=== PATIENT | male | born 1960 | race Caucasian/White ===

== ENCOUNTER 2019-04-14 22:35 | Inpatient (IN) | payer MEDICARE ==
[~2019-04-14] VITALS: Ht 170.2 cm; Wt 117.0 kg
[2019-04-14] MEDS ORDERED: IV NORMAL SALINE 1,000ML 1,000 ML IV ONE (23:30)
--- NOTE | 2019-04-14 23:34 | PHYS DOC ---
Adult General Chief Complaint Chief Complaint: WEAKNESS/GENERALIZED HPI HPI 58-year-old male presents with weakness. The patient was just discharged from [facility] and sent home today. While at home, the patient became more weak and was unable to get himself up out of a chair. His family was able to come over and help him get out of his chair, but he was not very steady on his feet. There were concerned that the patient would fall if left alone at home. Patient has recently been treated for urinary tract infection. He has a Myers catheter for urinary retention. He denies fever or chills. The patient family also noticed a mass on the lateral left lower leg that is new the last 2 days. There has been no imaging or other workup of this mass. Patient has a history of CVA a couple months ago. He was recently in an acute rehabilitation facility for this. He was doing well at that time. Review of Systems Review of Systems Constitutional: Generalized weakness. Denies fever or chills [] Eyes: Denies change in visual acuity, redness, or eye pain [] HENT: Denies nasal congestion or sore throat [] Respiratory: Denies cough or shortness of breath [] Cardiovascular: No additional information not addressed in HPI [] GI: Denies abdominal pain, nausea, vomiting, bloody stools or diarrhea [] : Urinary retention, Myres catheter[] Musculoskeletal: Denies back pain or joint pain [] Integument: Denies rash or skin lesions [] Neurologic: Denies headache, focal weakness or sensory changes [] Endocrine: Denies polyuria or polydipsia [] All other systems were reviewed and found to be within normal limits, except as documented in this note. Current Medications Current Medications Current Medications Medications (Trade) Dose Ordered Sig/[facility] Start Time Stop Time Status Last Admin Dose Admin Sodium Chloride 1,000 ml @ 1,000 mls/hr 1X ONCE 04/14/19 23:30 04/15/19 00:29 Allergies Allergies Allergies Coded Allergies Type Severity Reaction Last Updated Verified diltiazem Adverse Reaction Intermediate dizziness 04/14/19 Yes Physical Exam Physical Exam Constitutional: Well developed, well nourished, no acute distress, non-toxic appearance. [] HENT: Normocephalic, atraumatic, bilateral external ears normal, oropharynx moist, no oral exudates, nose normal. [] Eyes: PERRLA, EOMI, conjunctiva normal, no discharge. [] Neck: Normal range of motion, no tenderness, supple, no stridor. [] Cardiovascular:Heart rate regular rhythm, no murmur [] Lungs & Thorax: Bilateral breath sounds clear to auscultation [] Abdomen: Bowel sounds normal, soft, no tenderness, no masses, no pulsatile masses. [] Skin: Warm, dry, no erythema, no rash. 3 cm x 3 cm mass in the left, lateral, lower leg. No overlying skin changes.[] Back: No tenderness, no CVA tenderness. [] Extremities: No tenderness, no cyanosis, no clubbing, ROM intact, 2+ pitting edema to the mid tibia bilaterally.[] Neurologic: Alert and oriented X 3, normal motor function, normal sensory funct ion, no focal deficits noted. [] Psychologic: Affect normal, judgement normal, mood normal. : Myers catheter in place[] EKG EKG Sinus tachycardia, rate 114, leftward axis, no ST elevations or depressions, possible Q waves in lead 3, V1 through V4.[] Radiology/Procedures Radiology/Procedures [] Impressions: Exam: Chest one view INDICATION: Weakness TECHNIQUE: Frontal view of the chest Comparisons: None FINDINGS: Heart is enlarged. Pulmonary vessels are within normal limits. The lung and pleural spaces are clear. IMPRESSION: Mild cardiomegaly without acute pulmonary process. Electronically signed by: Deena Ramos MD (04/14/2019 11:37 PM) [facility] DICTATED AND SIGNED BY: DEENA RAMOS MD DATE: 04/14/19 2332 CC: BRIDGET CHO DO; NON,STAFF ~ EXAM: Left lower extremity venous Doppler. HISTORY: Left lower extremity pain/swelling. COMPARISON: None. FINDINGS: Grayscale and Doppler analysis of the left lower extremity deep venous system was performed with graded compression and augmentation. The common femoral, greater saphenous, superficial femoral, popliteal and calf veins were assessed. There is no evidence of deep venous thrombosis. A complicated fluid collection along the proximal calf appears subcutaneous and measures 10.7 x 2.0 x 5.7 cm. IMPRESSION: 1. No evidence of deep venous thrombosis. 2. 10.7 x 5.7 cm, complicated fluid collection within the proximal calf suggesting a hematoma or a ruptured popliteal cyst. Electronically signed by: Fabricio Neil MD (04/15/2019 1:01 AM) [facility] DICTATED AND SIGNED BY: MILLI NEIL MD DATE: 04/15/19100 CC: BRIDGET CHO DO; ZEINAB SUMMERS MD ~ Course & Med Decision Making Course & Med Decision Making Pertinent Labs and Imaging studies reviewed. (See chart for details) The patient's labs are significant for an elevated anion gap, but her blood sugar less than 200. He also has mild anemia. His urinalysis continues to show leukocyte esterase, white blood cells, red blood cells, and moderate bacteria. I will cover him additional dose of 1 g of Rocephin IV. Ultrasound is pending. A mass on the patient's leg appears to be a ruptured cyst or a hematoma. Given the patient's weakness and inability to care for himself at home, I will admit him to the hospital. I discussed this with Dr. Valdes and he has accepted the patient for admission. [] Dragon Disclaimer Dragon Disclaimer This electronic medical record was generated, in whole or in part, using a voice recognition dictation system. Departure Departure: Impression: Primary Impression: Weakness Additional Impressions: UTI (urinary tract infection) Hematoma Disposition: ADMITTED INPATIENT Condition: STABLE Referrals: NON,STAFF (PCP) Problem Qualifiers Additional Impressions: UTI (urinary tract infection) Urinary tract infection type: catheter-associated UTI Indwelling urinary catheter type: indwelling urethral catheter Encounter type: initial en counter Qualified Codes: T83.511A - Infection and inflammatory reaction due to indwelling urethral catheter, initial encounter; N39.0 - Urinary tract infection, site not specified BRIDGET CHO DO Apr 14, 2019 23:34
--- NOTE | 2019-04-14 23:40 | RAD ---
Exam: Chest one view INDICATION: Weakness TECHNIQUE: Frontal view of the chest Comparisons: None FINDINGS: Heart is enlarged. Pulmonary vessels are within normal limits. The lung and pleural spaces are clear. IMPRESSION: Mild cardiomegaly without acute pulmonary process. Electronically signed by: Deena Uribe MD (04/14/2019 11:37 PM) [facility]
[2019-04-15 00:23] LABS: BASO # 0.1 x10^3/uL (0.0-0.2); BASO % 1 % (0-3); EOS # 0.1 x10^3/uL (0.0-0.7); EOS % 2 % (0-3); HEMATOCRIT 36.6 % (39.0-53.0); LYMPH # 1.5 x10^3/uL (1.0-4.8); LYMPH % 25 % (24-48); MEAN CORPUSCULAR HEMOGLOBIN 28 pg (25-35); MEAN CORPUSCULAR HGB CONC 33 g/dL (31-37); MEAN CORPUSCULAR VOLUME 84 fL (79-100); MONO # 0.5 x10^3/uL (0.0-1.1); MONO % 9 % (0-9); NEUT # 3.8 x10^3uL (1.8-7.7); NEUT % 63 % (31-73); PLATELET COUNT 437 x10^3/uL (140-400); RED BLOOD COUNT 4.35 x10^6/uL (4.30-5.70); RED CELL DISTRIBUTION WIDTH 14.7 % (11.5-14.5)
[2019-04-15 00:27] LABS: BILIRUBIN,URINE NEG (NEG); CLARITY,URINE HAZY; COLOR,URINE YELLOW; GLUCOSE,URINE NEG (NEG)
[2019-04-15 00:28] LABS: AMORPHOUS SEDIMENT,UR PRESENT /HPF; BACTERIA,URINE MOD /HPF (0-FEW); NITRITE,URINE NEG (NEG); RBC,URINE 20-40 /HPF (0-2); SQUAMOUS EPITHELIAL CELL,UR MOD /LPF; UROBILINOGEN,URINE 0.2 mg/dL (0.2 mg/dL)
[2019-04-15 00:30] LABS: ALBUMIN 3.4 g/dL (3.4-5.0); ALBUMIN/GLOBULIN RATIO 1.1 (1.0-1.7); CALCIUM 9.2 mg/dL (8.5-10.1); GFR 76.5; POTASSIUM 3.4 mmol/L (3.5-5.1); TOTAL BILIRUBIN 0.4 mg/dL (0.2-1.0); TOTAL PROTEIN 6.6 g/dL (6.4-8.2)
[2019-04-15] MEDS ORDERED: IV NORMAL SALINE 50ML 50 ML ONE (01:03)
[2019-04-15] MEDS ORDERED: cefTRIAXone SODIUM 1 GM VIAL ONE (01:03)
--- NOTE | 2019-04-15 01:04 | RAD ---
EXAM: Left lower extremity venous Doppler. HISTORY: Left lower extremity pain/swelling. COMPARISON: None. FINDINGS: Grayscale and Doppler analysis of the left lower extremity deep venous system was performed with graded compression and augmentation. The common femoral, greater saphenous, superficial femoral, popliteal and calf veins were assessed. There is no evidence of deep venous thrombosis. A complicated fluid collection along the proximal calf appears subcutaneous and measures 10.7 x 2.0 x 5.7 cm. IMPRESSION: 1. No evidence of deep venous thrombosis. 2. 10.7 x 5.7 cm, complicated fluid collection within the proximal calf suggesting a hematoma or a ruptured popliteal cyst. Electronically signed by: Fabricio Neil MD (04/15/2019 1:01 AM) [facility]
--- NOTE | 2019-04-15 01:52 | EKG ---
[address] [address] Test Date: 2019-04-14 Test Time: 23:33:58 Pat Name: TIMOTHY WATT Department: Room: Gender: M [employer]: : [id number] Requested By: BRIDGET CHO Order Number: [id number] Reading MD: Gus Tian MD Measurements Intervals [place] Rate: 114 P: 16 [place]: 182 QRS: -29 QRSD: 86 T: 24 QT: 302 QTc: 419 Interpretive Statements SINUS TACHYCARDIA CONSIDER PRIOR INFERIOR INFARCT Electronically Signed On 04-25-2019 9:44:09 CDT by Gus Tian MD
[2019-04-15] MEDS ORDERED: ONDANSETRON PF 4 MG/2 ML VIAL. IV PRN (02:00)
[2019-04-15] MEDS ORDERED: ACETAMINOPHEN 325 MG TABLET PO PRN (02:00)
[2019-04-15 04:00] VITALS: BP 170/110
[2019-04-15 06:51] VITALS: BP 182/102
[2019-04-15] MEDS ORDERED: AMIT25TA PO (07:07)
[2019-04-15] MEDS ORDERED: AMOX500C PO (07:09)
[2019-04-15] MEDS ORDERED: APIX5TAB3 PO (07:10)
[2019-04-15] MEDS ORDERED: CARV3.1230 PO (07:16)
[2019-04-15] MEDS ORDERED: ASPI81TA50 PO (07:16)
[2019-04-15] MEDS ORDERED: ARIP15TA36 PO (07:16)
[2019-04-15] MEDS ORDERED: CHLO100T6 PO (07:16)
[2019-04-15] MEDS ORDERED: DULO60CA6 PO (07:19)
[2019-04-15] MEDS ORDERED: FLUT50DI IH (07:19)
[2019-04-15] MEDS ORDERED: HYDR-2769 PO (07:24)
[2019-04-15] MEDS ORDERED: NPH,100V SQ (07:25)
[2019-04-15] MEDS ORDERED: INSU100V5 IJ (07:29)
[2019-04-15] MEDS ORDERED: OMEP40CA45 PO (07:29)
[2019-04-15] MEDS ORDERED: MONT10TA80 PO (07:29)
[2019-04-15] MEDS ORDERED: LISI40TA PO (07:29)
[2019-04-15] MEDS ORDERED: PREG300C PO (07:30)
[2019-04-15] MEDS ORDERED: SUMA100T3 PO (07:33)
[2019-04-15] MEDS ORDERED: CRESTOR20 MG PO (07:33)
[2019-04-15] MEDS ORDERED: ROPI4TAB10 PO (07:33)
[2019-04-15] MEDS ORDERED: TOPI200T25 PO (07:35)
[2019-04-15] MEDS ORDERED: NON FORMULARY ITEM (Fluticasone Propionate (Flovent 50MCG Diskus) 50 MCG) IH PRN (07:45)
[2019-04-15] MEDS ORDERED: POTASSIUM CHLORIDE 20 MEQ TABLET.ER. PO ONE (08:00)
[2019-04-15] MEDS ORDERED: SUMAtriptan SUCCINATE 50 MG TABLET PO PRN (08:30)
[2019-04-15] MEDS: CARVEDILOL 3.125 MG TABLET PO SCH ×2 (08:52→17:14)
[2019-04-15] MEDS: ASPIRIN ENTERIC COATED 81 MG TABLET.DR. PO SCH (08:53)
[2019-04-15] MEDS: AMITRIPTYLINE HCL 25 MG TABLET PO SCH ×2 (08:54→20:51)
[2019-04-15] MEDS: DULoxetine HCL 60 MG CAPSULE.DR PO SCH (08:54)
[2019-04-15] MEDS: APIXABAN 5 MG TABLET. PO SCH ×2 (08:55→20:53)
[2019-04-15] MEDS: PANTOPRAZOLE 40 MG TABLET. PO SCH (08:55)
[2019-04-15] MEDS: PREGABALIN 75 MG CAPSULE PO SCH ×2 (08:55→20:52)
[2019-04-15] MEDS: rOPINIRole 2 MG TABLET. PO SCH ×2 (08:56→20:51)
[2019-04-15] MEDS: MONTELUKAST 10 MG TABLET. PO SCH (08:56)
[2019-04-15] MEDS: LISINOPRIL 20 MG TABLET PO SCH (08:56)
[2019-04-15] MEDS: TOPIRAMATE 100 MG TABLET. PO SCH (08:57)
[2019-04-15] MEDS ORDERED: AMOXICILLIN PO SCH (09:00)
[2019-04-15] MEDS: INSULIN GLARGINE SYRINGE. SQ SCH ×2 (09:01→20:50)
[2019-04-15] MEDS: INSULIN LISPRO 300 UNITS/3 ML VIAL. SQ SCH ×3 (09:02→17:15)
[2019-04-15] MEDS ORDERED: ELECTROLYTE (NON-ICU) PROTOCOL MC PRN (09:15)
[2019-04-15] MEDS: IV NORMAL SALINE 1,000ML 1,000 ML IV SCH (10:26)
[2019-04-15 11:08] VITALS: BP 151/89
[2019-04-15] MEDS: AMOXICILLIN 250 MG CAPSULE PO SCH ×2 (14:32→20:53)
[2019-04-15 16:03] VITALS: BP 147/91
[2019-04-15 19:06] VITALS: BP 148/95
[2019-04-15] MEDS ORDERED: BUDESONIDE 0.5 MG/2 ML NEBU NEB SCH (20:00)
[2019-04-15] MEDS: LACTOBACILLUS RHAMNOSUS GG 1 CAPSULE. PO SCH (20:52)
[2019-04-15] MEDS: chlorproMAZINE HCL 25 MG TABLET PO SCH (20:52)
[2019-04-15] MEDS: ATORVASTATIN CALCIUM 20 MG TABLET PO SCH (20:53)
[2019-04-15] MEDS: ARIPiprazole 15 MG TABLET PO SCH (20:53)
[2019-04-15 23:04] VITALS: BP 152/95
[2019-04-16] MEDS: IV NORMAL SALINE 1,000ML 1,000 ML IV SCH ×2 (00:05→12:47)
[2019-04-16 00:08] LABS: HEMOGLOBIN A1C 9.2 % (4.8-5.6)
--- NOTE | 2019-04-16 00:21 | HP ---
ADMIT DATE: HISTORY OF PRESENT ILLNESS: A 58-year-old gentleman came in through the Emergency Room with generalized weakness and difficulty walking. The patient has a significant history, who is a 58-year-old male, apparently suffered a stroke 2 months ago in February. Apparently, he has been in [facility]'s rehab system. The patient was just discharged the day before his admission here. Although, when he came in, he was extremely unsteady on his feet, very weak, unable to bear weight. As a result of this, the patient was admitted to the hospital for further evaluation. He has a Myers catheter for urinary retention and the patient had a mass, which was possibly a hematoma to the left lower leg from possible fall. The patient does have some difficulty with speech, but basically sounds like he is regaining most of his function, but he is extremely weak, admitted for the problem with his urinary tract infection, generalized weakness and further evaluations as some of the other data comes out. PAST MEDICAL HISTORY: Includes that of deaf in the right ear; TIA stroke as noted; hypertension; paroxysmal atrial fibrillation; sleep apnea ____ apparently does not use the CPAP; esophageal precancer; Lopez's esophagus; morbid obesity; urinary retention; type 2 diabetes, poorly controlled; tetanus and diphtheria vaccination and influenza vaccine have been all updated. FAMILY HISTORY: Father of a PE, mother of kidney disease and breast cancer. MEDICATIONS: The patient's medications include Lipitor 80, Thorazine 100, Abilify 15, Pulmicort, Topamax 200 mg daily, Requip 4 mg b.i.d., Lyrica 300, Protonix ____, lisinopril 40, Singulair 10, Cymbalta 120, Eliquis 5 mg b.i.d., Elavil 25 mg b.i.d., Imitrex p.r.n. for headaches, migraine, carvedilol 3.125, hydrocodone, acetaminophen and the like. ALLERGIES: He has an allergy to DILTIAZEM. SOCIAL HISTORY: The patient denies smoking, alcohol or drug use. The patient is a full code. REVIEW OF SYSTEMS: The patient has generalized weakness; however, he denies any fever, chills, nausea, vomiting, or diaphoresis. Does feel like his heart is racing at times and the patient neurologically basically stable with just some generalized residual problems with his previous stroke in February. Otherwise, he is resting fairly comfortably. Denies any problem with bowels or bladder. PHYSICAL EXAMINATION: GENERAL: Pleasant white male, morbidly obese. VITAL SIGNS: Blood pressure 148/95, respiratory rate 20, pulse 90, afebrile. The patient is approximately 114 kilos. HEENT: Otherwise, head was atraumatic, normocephalic. Eyes: PERRL. The patient's speech was slightly off, but overall had good enunciation and had good understanding of the speech and spoke in full sentences. NECK: Supple. LUNGS: Diminished, but clear. CARDIOVASCULAR: Regular sinus rhythm, S1, S2. ABDOMEN: Soft, nontender, no rebounding or guarding. Positive bowel sounds, no hepatosplenomegaly was noted, but markedly protuberant. EXTREMITIES: No clubbing, cyanosis, no edema, no swelling to the left lower leg. Apparently, he may have fallen and had a bruise to that area. Otherwise, the patient will be monitored carefully, make further evaluation on him as indicated. IMPRESSION: Therefore, generalized weakness, probable hematoma to the left lower leg, fairly good size, 10 x 5 cm, morbid obesity, type 2 diabetes, anemia of chronic disease, hematuria. There is a Myers catheter in place and we will continue to treat his urinary tract infection that was assessed over at [facility]. ABBEY CASTRO MD DR: MARIA C/eduarda JOB#: [id number] / [id number]
[2019-04-16 05:30] VITALS: BP 148/97
[2019-04-16] MEDS ORDERED: BUDESONIDE 0.5 MG/2 ML NEBU NEB PRN (05:30)
[2019-04-16 07:07] LABS: BASO % 1 % (0-3); EOS # 0.1 x10^3/uL (0.0-0.7); EOS % 3 % (0-3); HEMOGLOBIN 11.2 g/dL (13.0-17.5); LYMPH # 1.2 x10^3/uL (1.0-4.8); LYMPH % 25 % (24-48); MEAN CORPUSCULAR HEMOGLOBIN 28 pg (25-35); MEAN CORPUSCULAR HGB CONC 33 g/dL (31-37); MEAN CORPUSCULAR VOLUME 85 fL (79-100); MONO # 0.4 x10^3/uL (0.0-1.1); MONO % 8 % (0-9); NEUT # 3.1 x10^3uL (1.8-7.7); NEUT % 63 % (31-73); PLATELET COUNT 325 x10^3/uL (140-400); RED BLOOD COUNT 4.01 x10^6/uL (4.30-5.70); RED CELL DISTRIBUTION WIDTH 15.5 % (11.5-14.5); WHITE BLOOD COUNT 4.9 x10^3/uL (4.0-11.0)
[2019-04-16 07:12] LABS: CALCIUM 8.6 mg/dL (8.5-10.1); CREATININE 0.9 mg/dL (0.7-1.3); GFR 86.4; POTASSIUM 3.5 mmol/L (3.5-5.1)
[2019-04-16] MEDS ORDERED: FLU VAX QS 2019-20 (36MOS+)/PF 0.5 ML SYRINGE. VAX IM ONE (09:00)
[2019-04-16] MEDS: TOPIRAMATE 100 MG TABLET. PO SCH (09:07)
[2019-04-16] MEDS: APIXABAN 5 MG TABLET. PO SCH ×2 (09:07→20:59)
[2019-04-16] MEDS: DULoxetine HCL 60 MG CAPSULE.DR PO SCH (09:07)
[2019-04-16] MEDS: LACTOBACILLUS RHAMNOSUS GG 1 CAPSULE. PO SCH ×2 (09:07→20:59)
[2019-04-16] MEDS: PREGABALIN 75 MG CAPSULE PO SCH ×2 (09:07→20:59)
[2019-04-16] MEDS: AMOXICILLIN 250 MG CAPSULE PO SCH ×3 (09:07→20:59)
[2019-04-16] MEDS: ASPIRIN ENTERIC COATED 81 MG TABLET.DR. PO SCH (09:07)
[2019-04-16] MEDS: MONTELUKAST 10 MG TABLET. PO SCH (09:08)
[2019-04-16] MEDS: rOPINIRole 2 MG TABLET. PO SCH ×2 (09:08→21:00)
[2019-04-16] MEDS: LISINOPRIL 20 MG TABLET PO SCH (09:08)
[2019-04-16] MEDS: PANTOPRAZOLE 40 MG TABLET. PO SCH (09:08)
[2019-04-16] MEDS: AMITRIPTYLINE HCL 25 MG TABLET PO SCH ×2 (09:09→21:00)
[2019-04-16] MEDS: INSULIN LISPRO 300 UNITS/3 ML VIAL. SQ SCH ×3 (09:14→17:06)
[2019-04-16] MEDS: INSULIN GLARGINE SYRINGE. SQ SCH ×2 (09:19→21:16)
[2019-04-16] MEDS: CARVEDILOL 3.125 MG TABLET PO SCH ×2 (09:20→17:05)
[2019-04-16 10:52] VITALS: BP 109/69
[2019-04-16] MEDS: HYDROcodone/APAP 10/325 1 TAB TABLET PO PRN (12:35)
[2019-04-16 14:39] VITALS: BP 120/74
[2019-04-16 18:26] VITALS: BP 125/76
[2019-04-16] MEDS: ATORVASTATIN CALCIUM 20 MG TABLET PO SCH (20:59)
[2019-04-16] MEDS: ARIPiprazole 15 MG TABLET PO SCH (21:00)
[2019-04-16] MEDS: chlorproMAZINE HCL 25 MG TABLET PO SCH (21:12)
--- NOTE | 2019-04-16 22:06 | PN ---
DATE: SUBJECTIVE: The patient in post stroke, needing rehab. The patient is resting fairly comfortably, making fairly good progress. His magnesium was low at 1.6. Hemoglobin A1c 9.2. He has better controlled that blood sugar obviously. The patient otherwise seems to be resting fairly comfortably, says he is feeling a little better. His sugars down to 158. The patient did have 20-40 red blood cells per high powered field. The patient still has a Myers catheter in place. He is getting physical and occupational therapy here and is making good progress. OBJECTIVE: VITAL SIGNS: Blood pressure 110/70, respiratory rate 20, pulse 108, afebrile. CARDIOVASCULAR: Irregularly, irregular. ABDOMEN: Soft, nontender, no rebound or guarding. Positive bowel sounds, markedly protuberant. EXTREMITIES: No clubbing, cyanosis. Trace edema noted. NEUROLOGIC: The patient's baseline has some trouble with speech, but otherwise seems to be recovering nicely from his stroke with generalized weakness. We will give him some additional magnesium and make further evaluation there. IMPRESSION: Post-stroke generalized weakness with marked imbalance had been falling quite a bit, history of hematuria, urinary hesitancy, type 2 diabetes, hematoma to the left lower leg, anemia of chronic disease, urinary tract infection. PLAN: As above. ABBEY CASTRO MD DR: MARIA C/eduarda JOB#: [id number] / [id number]
[2019-04-17 05:30] VITALS: BP 129/90
[2019-04-17] MEDS: INSULIN LISPRO 300 UNITS/3 ML VIAL. SQ SCH ×3 (07:30→16:30)
[2019-04-17] MEDS: INSULIN GLARGINE SYRINGE. SQ SCH ×2 (08:47→20:56)
[2019-04-17] MEDS: TOPIRAMATE 100 MG TABLET. PO SCH (08:52)
[2019-04-17] MEDS: LISINOPRIL 20 MG TABLET PO SCH (08:54)
[2019-04-17] MEDS: PREGABALIN 75 MG CAPSULE PO SCH ×2 (08:55→20:54)
[2019-04-17] MEDS: ASPIRIN ENTERIC COATED 81 MG TABLET.DR. PO SCH (08:55)
[2019-04-17] MEDS: AMOXICILLIN 250 MG CAPSULE PO SCH ×3 (08:55→20:54)
[2019-04-17] MEDS: CARVEDILOL 3.125 MG TABLET PO SCH ×2 (08:56→17:04)
[2019-04-17] MEDS: PANTOPRAZOLE 40 MG TABLET. PO SCH (08:56)
[2019-04-17] MEDS: DULoxetine HCL 60 MG CAPSULE.DR PO SCH (08:56)
[2019-04-17] MEDS: LACTOBACILLUS RHAMNOSUS GG 1 CAPSULE. PO SCH ×2 (08:56→20:54)
[2019-04-17] MEDS: MONTELUKAST 10 MG TABLET. PO SCH (08:56)
[2019-04-17] MEDS: APIXABAN 5 MG TABLET. PO SCH ×2 (08:56→20:54)
[2019-04-17] MEDS: AMITRIPTYLINE HCL 25 MG TABLET PO SCH ×2 (08:59→20:58)
[2019-04-17] MEDS: rOPINIRole 2 MG TABLET. PO SCH ×2 (08:59→20:55)
[2019-04-17 11:09] VITALS: BP 119/83
[2019-04-17] MEDS ORDERED: DEXTROSE 50% 25 GM / 50ML DISP.SYRIN. IV PRN (13:00)
[2019-04-17 15:07] VITALS: BP 121/80
[2019-04-17 19:44] VITALS: BP 142/81
[2019-04-17] MEDS: chlorproMAZINE HCL 25 MG TABLET PO SCH (20:54)
[2019-04-17] MEDS: HYDROcodone/APAP 10/325 1 TAB TABLET PO PRN (20:55)
[2019-04-17] MEDS: ATORVASTATIN CALCIUM 20 MG TABLET PO SCH (20:55)
[2019-04-17] MEDS: ARIPiprazole 15 MG TABLET PO SCH (20:57)
[2019-04-17 22:30] VITALS: BP 143/90
--- NOTE | 2019-04-18 03:24 | PN ---
DATE: 04/17/2019 PROGRESS NOTE SUBJECTIVE: The patient is sitting comfortably in his chair, eating his lunch, in no apparent distress. On questioning him, he denied any complaint. Nursing staff said that he continued to be weak, unsteady on his feet. Apparently, he sustained a stroke in February of this year and for which he was seen at [facility] in the [place] and since then, he was in [facility]hab [facility]. He was discharged 1 day before he was admitted here as he was extremely unsteady on his feet, very weak, unable to bear weight, and therefore, he was admitted to this hospital for further evaluation. He has had a Myers catheter for urinary retention. He has also had a mass which is probably hematoma on the outer aspect of the left leg. PHYSICAL EXAMINATION: GENERAL: When I examined him this morning, he was sitting comfortably in his chair, eating his lunch, in no apparent distress. He was pale, no jaundice, cyanosis or thyromegaly. No jugular venous distention. He has bilateral lower extremity lymphedema. VITAL SIGNS: His heart rate was 96, blood pressure 119/83, temperature was 98.1, respiratory rate was 18 and oxygen saturation was 97% on room air. HEAD, EYES, EARS, NOSE AND THROAT: Normocephalic, atraumatic. NECK: Supple. HEART: Showed normal first and second heart sounds. No gallop or murmur. CHEST: Clear to auscultation. No crepitation or rhonchi. ABDOMEN: Distended, soft, nontender. NEUROLOGIC: He seems to be awake, alert, responding appropriately. All cranial nerves are intact. 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 His intake over the last 24 hours was 1940, output was 3650. LABORATORY DATA: Showed a white cell count 4900, hemoglobin 11, hematocrit 34, MCV 85, and platelet count 325,000. His serum sodium 140, potassium 3.4, chloride 105, bicarbonate 20, anion gap of 15, BUN 13, creatinine 1, estimated GFR was 76 mL per minute, his glucose was 165. His hemoglobin A1c was 9.2%. His calcium was 9.2, magnesium was 1.6. His serum sodium 144, potassium 3.5, chloride 109, bicarbonate 26, anion gap of 9, BUN 9, creatinine 0.9, estimated GFR was 86 mL per minute, his glucose 158, calcium was 8.6, magnesium was 1.6. ASSESSMENT: 1. Type 2 diabetes mellitus. 2. Hypertension. 3. History of stroke with unsteady gait. 4. Fall with resultant left lower extremity hematoma, anemia of chronic disease, benign prostatic hypertrophy, and apparently, he has also urinary tract infection with moderate amount of bacteria. PLAN: The plan is to continue with all his current medications. I requested his more records from [facility]. He probably needs to be in a swing bed or a fpc facility to continue the process of rehabilitation. I am going to check his blood sugar more often to adjust his medication accordingly. THEA PRIEST MD DR: MARY/eduarda JOB#: [id number] / [id number]
[2019-04-18] MEDS: HYDROcodone/APAP 10/325 1 TAB TABLET PO PRN (05:06)
[2019-04-18] MEDS ORDERED: ZOLP10TA PO (05:08)
[2019-04-18 05:11] VITALS: BP 126/79
[2019-04-18 06:20] LABS: HEMATOCRIT 33.3 % (39.0-53.0); HEMOGLOBIN 10.7 g/dL (13.0-17.5); RED BLOOD COUNT 3.9 x10^6/uL (4.30-5.70); RED CELL DISTRIBUTION WIDTH 15.4 % (11.5-14.5); WHITE BLOOD COUNT 5.2 x10^3/uL (4.0-11.0)
[2019-04-18 06:36] LABS: ALBUMIN 3.1 g/dL (3.4-5.0); ALBUMIN/GLOBULIN RATIO 1.1 (1.0-1.7); CREATININE 0.9 mg/dL (0.7-1.3); GFR 86.4; POTASSIUM 3.6 mmol/L (3.5-5.1); TOTAL BILIRUBIN 0.3 mg/dL (0.2-1.0)
[2019-04-18] MEDS: INSULIN LISPRO 300 UNITS/3 ML VIAL. SQ SCH (07:30)
[2019-04-18] MEDS: MONTELUKAST 10 MG TABLET. PO SCH (07:41)
[2019-04-18] MEDS: APIXABAN 5 MG TABLET. PO SCH (07:41)
[2019-04-18] MEDS: PREGABALIN 75 MG CAPSULE PO SCH (07:41)
[2019-04-18] MEDS: TOPIRAMATE 100 MG TABLET. PO SCH (07:41)
[2019-04-18] MEDS: ASPIRIN ENTERIC COATED 81 MG TABLET.DR. PO SCH (07:41)
[2019-04-18 07:42] VITALS: BP 126/79
[2019-04-18] MEDS: CARVEDILOL 3.125 MG TABLET PO SCH (07:42)
[2019-04-18] MEDS: LISINOPRIL 20 MG TABLET PO SCH (07:42)
[2019-04-18] MEDS: DULoxetine HCL 60 MG CAPSULE.DR PO SCH (07:42)
[2019-04-18] MEDS: LACTOBACILLUS RHAMNOSUS GG 1 CAPSULE. PO SCH (07:42)
[2019-04-18] MEDS: PANTOPRAZOLE 40 MG TABLET. PO SCH (07:42)
[2019-04-18] MEDS: AMITRIPTYLINE HCL 25 MG TABLET PO SCH (07:43)
[2019-04-18] MEDS: rOPINIRole 2 MG TABLET. PO SCH (07:43)
[2019-04-18] MEDS: INSULIN GLARGINE SYRINGE. SQ SCH (09:00)
[2019-04-18] MEDS: AMOXICILLIN 250 MG CAPSULE PO SCH (09:19)
--- NOTE | 2019-04-18 20:49 | DS ---
DATE OF DISCHARGE: 04/18/2019 HOSPITAL COURSE: The patient is a 58-year-old male patient who apparently has had a stroke in February this year, for which he was seen at [facility] in the [place] and since then he was in [facility]. He apparently was discharged home, but he was extremely unsteady on his feet, very weak, and unable to bear weight and therefore, he was admitted to [facility], had a Myers catheter for urinary retention. He also had a mass, which is probably hematoma on the outer aspect of left leg. As it became clear that the patient needs rehabilitation, he was discharged to swing bed to continue the process of physical and occupational therapy. PHYSICAL EXAMINATION: GENERAL: When I examined him today, he looked well and was clearly in no apparent respiratory distress, pale, but no jaundice, cyanosis, or thyromegaly. No jugular venous distention. No limb edema. VITAL SIGNS: His heart rate was 70, blood pressure was 126/79, temperature was 97.7, respiratory rate was 18, and oxygen saturation was 96%. HEAD, EYES, EARS, NOSE AND THROAT: Showed normocephalic, atraumatic. NECK: Supple. HEART: Showed normal first and second heart sounds. No gallop or murmur. CHEST: Clear to auscultation. No crepitation or rhonchi. ABDOMEN: Distended, soft, nontender. NEUROLOGIC: He was awake, alert, responding appropriately. All cranial nerves intact. He moves extremities without difficulty, ambulates with a walker. His intake over the last 24 hours was 1300 and output was 2000. LABORATORY DATA: His lab work as of this morning showed a serum sodium 143, potassium 3.6, chloride 107, bicarbonate 28, anion gap of 8, BUN 13, creatinine 0.9, estimated GFR was 86 mL per minute, his glucose 156, calcium was 9, magnesium was 1.9. Total bilirubin, AST, ALT, alkaline phosphatase were normal. Total protein was 6, albumin was 3.1. His white cell count was 5200, hemoglobin 11, hematocrit 33, MCV 86, and platelet count 300,000. DISCHARGE MEDICATIONS: He was discharged to swing bed to continue on Pulmicort 0.5 mg twice a day, lactobacillus rhamnosus 1 capsule twice a day, atorvastatin calcium 80 mg at bedtime, chlorpromazine for Largactil 100 mg at bedtime, aripiprazole 15 mg at bedtime, amoxicillin 500 mg 3 times a day, he is on topiramate 200 mg daily, ropinirole 4 mg twice a day, pregabalin 300 mg twice a day, Protonix 40 mg daily, he is also on Lantus insulin 7 units twice a day, lisinopril 40 mg daily, montelukast 10 mg daily, he is on Humalog insulin 5 units before meals, duloxetine 120 mg daily, aspirin 81 mg once a day, apixaban 5 mg twice a day, amitriptyline 25 mg twice a day, sumatriptan succinate 50 mg every 2 hours as needed, carvedilol 3.125 mg twice a day, and hydrocodone/APAP 10/325 one tablet every 6 hours. FINAL DISCHARGE DIAGNOSES: 1. Type 2 diabetes mellitus. 2. Hypertension. 3. History of stroke with unsteady gait. 4. Fall with resultant left lower extremity hematoma. 5. Anemia of chronic disease. 6. Benign prostatic hypertrophy. 7. Bladder outlet obstruction requiring indwelling Myers catheter. 8. Urinary tract infection with a moderate amount of bacteria. THEA PRIEST MD DR: MARY/eduarda JOB#: [id number] / [id number]
== END 2019-04-18 10:19 | disposition swing bed (61) | DRG 698 ==
LOC: ER 22:35 → 1 SOUTH 04-15 01:44
PROVIDERS: ADMIT Family Medicine; ATTEND Internal Medicine
DX: T83.511A Infection and inflammatory reaction due to indwelling urethral catheter, initial encounter (principal); A41.9 Sepsis, unspecified organism; N39.0 Urinary tract infection, site not specified; E11.9 Type 2 diabetes mellitus without complications; D63.8 Anemia in other chronic diseases classified elsewhere; R31.9 Hematuria, unspecified; E66.01 Morbid (severe) obesity due to excess calories; S80.12XA Contusion of left lower leg, initial encounter; I10 Essential (primary) hypertension; G47.30 Sleep apnea, unspecified; N40.0 Benign prostatic hyperplasia without lower urinary tract symptoms; N32.0 Bladder-neck obstruction; H91.91 Unspecified hearing loss, right ear; I48.0 Paroxysmal atrial fibrillation; Z86.73 Personal history of transient ischemic attack (TIA), and cerebral infarction without residual deficits; X58.XXXA Exposure to other specified factors, initial encounter; Z88.8 Allergy status to other drugs, medicaments and biological substances; Z80.3 Family history of malignant neoplasm of breast; Y93.89 Activity, other specified; Y92.89 Other specified places as the place of occurrence of the external cause; Y99.8 Other external cause status
CPT/HCPCS: 36415; 71045; 80048; 80053; 80061; 81001; 82306; 82550; 82607; 82947; 83036; 83735; 84484; 85025; 85027; 87086; 90471; 90686; 93005; 93971; 94640; 96361; 96374; J0696; J1815; J7626; Q0161; 97110; 97116; 97530; 99285-25; J7030

== ENCOUNTER 2019-04-18 10:05 | Inpatient (IN) | payer MEDICARE ==
[~2019-04-18] VITALS: Ht 172.7 cm; Wt 120.7 kg
[~2019-04-18 10:05] MED LIST: AMIT25TA PO; AMOX500C PO; APIX5TAB3 PO; ARIP15TA36 PO; ASPI81TA50 PO; CARV3.1230 PO; CHLO100T6 PO; CRESTOR20 MG PO; DULO60CA6 PO; FLUT50DI IH; HYDR-2769 PO; INSU100V5 IJ; LISI40TA PO; MONT10TA80 PO; NPH,100V SQ; OMEP40CA45 PO; PREG300C PO; ROPI4TAB10 PO; SUMA100T3 PO; TOPI200T25 PO; ZOLP10TA PO
[2019-04-18 10:45] VITALS: BP 110/73
[2019-04-18] MEDS ORDERED: NON FORMULARY ITEM (Fluticasone Propionate (Flovent 50MCG Diskus) 50 MCG) IH PRN (15:15)
[2019-04-18] MEDS ORDERED: ZOLPIDEM 5 MG TABLET. PO PRN (15:45)
[2019-04-18] MEDS ORDERED: SUMAtriptan SUCCINATE 50 MG TABLET PO PRN (15:45)
[2019-04-18] MEDS: CARVEDILOL 3.125 MG TABLET PO SCH (17:00)
[2019-04-18] MEDS: INSULIN LISPRO 300 UNITS/3 ML VIAL. SQ SCH (17:16)
[2019-04-18] MEDS ORDERED: BUDESONIDE 0.5 MG/2 ML NEBU NEB PRN (20:00)
[2019-04-18] MEDS: rOPINIRole 2 MG TABLET. PO SCH (20:27)
[2019-04-18] MEDS: ARIPiprazole 15 MG TABLET PO SCH (20:27)
[2019-04-18] MEDS: AMITRIPTYLINE HCL 25 MG TABLET PO SCH (20:28)
[2019-04-18] MEDS: PREGABALIN 75 MG CAPSULE PO SCH (20:28)
[2019-04-18] MEDS: AMOXICILLIN 250 MG CAPSULE PO SCH (20:28)
[2019-04-18] MEDS: chlorproMAZINE HCL 25 MG TABLET PO SCH (20:28)
[2019-04-18] MEDS: APIXABAN 5 MG TABLET. PO SCH (20:29)
[2019-04-18] MEDS: ATORVASTATIN CALCIUM 20 MG TABLET PO SCH (20:29)
[2019-04-18] MEDS: ZOLPIDEM 5 MG TABLET. PO SCH (20:29)
[2019-04-18] MEDS: HYDROcodone/APAP 10/325 1 TAB TABLET PO PRN (20:29)
[2019-04-18] MEDS: INSULIN GLARGINE SYRINGE. SQ SCH (20:35)
[2019-04-18] MEDS ORDERED: INSULIN GLARGINE SYRINGE. SQ SCH (21:00)
[2019-04-19 05:25] VITALS: BP 145/87
[2019-04-19 06:30] LABS: BASO % 1 % (0-3); EOS # 0.2 x10^3/uL (0.0-0.7); EOS % 4 % (0-3); HEMATOCRIT 31.5 % (39.0-53.0); HEMOGLOBIN 10.3 g/dL (13.0-17.5); LYMPH # 1.2 x10^3/uL (1.0-4.8); LYMPH % 30 % (24-48); MEAN CORPUSCULAR HEMOGLOBIN 28 pg (25-35); MEAN CORPUSCULAR HGB CONC 33 g/dL (31-37); MEAN CORPUSCULAR VOLUME 85 fL (79-100); MONO # 0.4 x10^3/uL (0.0-1.1); MONO % 9 % (0-9); NEUT # 2.4 x10^3uL (1.8-7.7); NEUT % 57 % (31-73); PLATELET COUNT 258 x10^3/uL (140-400); RED BLOOD COUNT 3.72 x10^6/uL (4.30-5.70); RED CELL DISTRIBUTION WIDTH 15.8 % (11.5-14.5); WHITE BLOOD COUNT 4.2 x10^3/uL (4.0-11.0)
[2019-04-19 06:48] LABS: ALBUMIN/GLOBULIN RATIO 1.1 (1.0-1.7); CALCIUM 8.7 mg/dL (8.5-10.1); CREATININE 0.8 mg/dL (0.7-1.3); GFR 98.9; POTASSIUM 3.5 mmol/L (3.5-5.1); TOTAL BILIRUBIN 0.3 mg/dL (0.2-1.0); TOTAL PROTEIN 5.8 g/dL (6.4-8.2)
[2019-04-19] MEDS: AMOXICILLIN 250 MG CAPSULE PO SCH ×3 (08:06→21:07)
[2019-04-19] MEDS: PREGABALIN 75 MG CAPSULE PO SCH ×2 (08:06→21:07)
[2019-04-19] MEDS: ASPIRIN ENTERIC COATED 81 MG TABLET.DR. PO SCH (08:06)
[2019-04-19] MEDS: MONTELUKAST 10 MG TABLET. PO SCH (08:07)
[2019-04-19] MEDS: PANTOPRAZOLE 40 MG TABLET. PO SCH (08:07)
[2019-04-19] MEDS: TOPIRAMATE 100 MG TABLET. PO SCH (08:07)
[2019-04-19] MEDS: CARVEDILOL 3.125 MG TABLET PO SCH ×2 (08:07→17:10)
[2019-04-19] MEDS: DULoxetine HCL 60 MG CAPSULE.DR PO SCH (08:07)
[2019-04-19] MEDS: LISINOPRIL 20 MG TABLET PO SCH (08:07)
[2019-04-19] MEDS: APIXABAN 5 MG TABLET. PO SCH ×2 (08:07→21:05)
[2019-04-19] MEDS: INSULIN GLARGINE SYRINGE. SQ SCH ×2 (08:24→21:07)
[2019-04-19] MEDS: INSULIN LISPRO 300 UNITS/3 ML VIAL. SQ SCH ×3 (08:26→16:30)
[2019-04-19] MEDS: AMITRIPTYLINE HCL 25 MG TABLET PO SCH ×2 (08:42→21:05)
[2019-04-19] MEDS: rOPINIRole 2 MG TABLET. PO SCH ×2 (08:43→21:08)
[2019-04-19 18:06] VITALS: BP 154/93
[2019-04-19] MEDS: ATORVASTATIN CALCIUM 20 MG TABLET PO SCH (21:05)
[2019-04-19] MEDS: LACTOBACILLUS RHAMNOSUS GG 1 CAPSULE. PO SCH (21:05)
[2019-04-19] MEDS: chlorproMAZINE HCL 25 MG TABLET PO SCH (21:07)
[2019-04-19] MEDS: ZOLPIDEM 5 MG TABLET. PO SCH (21:07)
[2019-04-19] MEDS: ARIPiprazole 15 MG TABLET PO SCH (21:08)
[2019-04-20 06:44] VITALS: BP 160/96
[2019-04-20] MEDS: PREGABALIN 75 MG CAPSULE PO SCH ×2 (08:05→20:54)
[2019-04-20] MEDS: AMOXICILLIN 250 MG CAPSULE PO SCH ×3 (08:06→20:54)
[2019-04-20] MEDS: MONTELUKAST 10 MG TABLET. PO SCH (08:06)
[2019-04-20] MEDS: LISINOPRIL 20 MG TABLET PO SCH (08:06)
[2019-04-20] MEDS: TOPIRAMATE 100 MG TABLET. PO SCH (08:06)
[2019-04-20] MEDS: PANTOPRAZOLE 40 MG TABLET. PO SCH (08:06)
[2019-04-20] MEDS: LACTOBACILLUS RHAMNOSUS GG 1 CAPSULE. PO SCH ×2 (08:07→20:55)
[2019-04-20] MEDS: ASPIRIN ENTERIC COATED 81 MG TABLET.DR. PO SCH (08:07)
[2019-04-20] MEDS: CARVEDILOL 3.125 MG TABLET PO SCH ×2 (08:07→17:33)
[2019-04-20] MEDS: DULoxetine HCL 60 MG CAPSULE.DR PO SCH (08:07)
[2019-04-20] MEDS: APIXABAN 5 MG TABLET. PO SCH ×2 (08:07→20:55)
[2019-04-20] MEDS: AMITRIPTYLINE HCL 25 MG TABLET PO SCH ×2 (08:08→20:55)
[2019-04-20] MEDS: rOPINIRole 2 MG TABLET. PO SCH ×2 (08:08→20:54)
[2019-04-20] MEDS: INSULIN GLARGINE SYRINGE. SQ SCH ×2 (08:23→21:04)
[2019-04-20] MEDS: INSULIN LISPRO 300 UNITS/3 ML VIAL. SQ SCH ×3 (08:25→17:36)
[2019-04-20 18:06] VITALS: BP 147/88
[2019-04-20] MEDS: ZOLPIDEM 5 MG TABLET. PO SCH (20:53)
[2019-04-20] MEDS: ARIPiprazole 15 MG TABLET PO SCH (20:54)
[2019-04-20] MEDS: chlorproMAZINE HCL 25 MG TABLET PO SCH (20:54)
[2019-04-20] MEDS: HYDROcodone/APAP 10/325 1 TAB TABLET PO PRN (20:55)
[2019-04-20] MEDS: TAMSULOSIN 0.4 MG CAP.ER.24H. PO SCH (20:55)
[2019-04-20] MEDS: ATORVASTATIN CALCIUM 20 MG TABLET PO SCH (20:55)
[2019-04-21 05:28] VITALS: BP 137/92
[2019-04-21] MEDS: INSULIN LISPRO 300 UNITS/3 ML VIAL. SQ SCH ×3 (07:30→17:15)
[2019-04-21] MEDS: TOPIRAMATE 100 MG TABLET. PO SCH (08:50)
[2019-04-21] MEDS: LACTOBACILLUS RHAMNOSUS GG 1 CAPSULE. PO SCH ×2 (08:50→20:34)
[2019-04-21] MEDS: DULoxetine HCL 60 MG CAPSULE.DR PO SCH (08:50)
[2019-04-21] MEDS: LISINOPRIL 20 MG TABLET PO SCH (08:51)
[2019-04-21] MEDS: PANTOPRAZOLE 40 MG TABLET. PO SCH (08:51)
[2019-04-21] MEDS: ASPIRIN ENTERIC COATED 81 MG TABLET.DR. PO SCH (08:51)
[2019-04-21] MEDS: APIXABAN 5 MG TABLET. PO SCH ×2 (08:51→20:34)
[2019-04-21] MEDS: CARVEDILOL 3.125 MG TABLET PO SCH ×2 (08:51→17:16)
[2019-04-21] MEDS: HYDROcodone/APAP 10/325 1 TAB TABLET PO PRN ×2 (08:51→20:34)
[2019-04-21] MEDS: MONTELUKAST 10 MG TABLET. PO SCH ×2 (08:52→22:25)
[2019-04-21] MEDS: PREGABALIN 75 MG CAPSULE PO SCH ×2 (09:01→20:33)
[2019-04-21] MEDS: rOPINIRole 2 MG TABLET. PO SCH ×2 (09:01→20:35)
[2019-04-21] MEDS: AMITRIPTYLINE HCL 25 MG TABLET PO SCH ×2 (09:01→20:35)
[2019-04-21] MEDS: INSULIN GLARGINE SYRINGE. SQ SCH ×2 (09:06→20:43)
[2019-04-21] MEDS: ATORVASTATIN CALCIUM 20 MG TABLET PO SCH (20:34)
[2019-04-21] MEDS: ZOLPIDEM 5 MG TABLET. PO SCH (20:34)
[2019-04-21] MEDS: chlorproMAZINE HCL 25 MG TABLET PO SCH (20:35)
[2019-04-21] MEDS: TAMSULOSIN 0.4 MG CAP.ER.24H. PO SCH (20:35)
[2019-04-21] MEDS: ARIPiprazole 15 MG TABLET PO SCH (20:36)
[2019-04-22 06:41] VITALS: BP 138/80
[2019-04-22] MEDS: PANTOPRAZOLE 40 MG TABLET. PO SCH (07:20)
[2019-04-22] MEDS: LACTOBACILLUS RHAMNOSUS GG 1 CAPSULE. PO SCH ×2 (09:22→21:01)
[2019-04-22] MEDS: ASPIRIN ENTERIC COATED 81 MG TABLET.DR. PO SCH (09:23)
[2019-04-22] MEDS: LISINOPRIL 20 MG TABLET PO SCH (09:23)
[2019-04-22] MEDS: CARVEDILOL 3.125 MG TABLET PO SCH ×2 (09:23→16:53)
[2019-04-22] MEDS: rOPINIRole 2 MG TABLET. PO SCH ×2 (09:24→21:00)
[2019-04-22] MEDS: DULoxetine HCL 60 MG CAPSULE.DR PO SCH (09:24)
[2019-04-22] MEDS: TOPIRAMATE 100 MG TABLET. PO SCH (09:24)
[2019-04-22] MEDS: AMITRIPTYLINE HCL 25 MG TABLET PO SCH ×2 (09:25→21:01)
[2019-04-22] MEDS: HYDROcodone/APAP 10/325 1 TAB TABLET PO PRN ×2 (09:25→21:01)
[2019-04-22] MEDS: MONTELUKAST 10 MG TABLET. PO SCH (09:25)
[2019-04-22] MEDS: APIXABAN 5 MG TABLET. PO SCH ×2 (09:57→21:01)
[2019-04-22] MEDS: PREGABALIN 75 MG CAPSULE PO SCH ×2 (10:37→21:00)
[2019-04-22] MEDS: INSULIN LISPRO 300 UNITS/3 ML VIAL. SQ SCH ×3 (11:05→16:54)
[2019-04-22] MEDS: INSULIN GLARGINE SYRINGE. SQ SCH ×2 (11:08→21:38)
[2019-04-22 18:21] VITALS: BP 134/92
[2019-04-22] MEDS: chlorproMAZINE HCL 25 MG TABLET PO SCH (21:00)
[2019-04-22] MEDS: ATORVASTATIN CALCIUM 20 MG TABLET PO SCH (21:01)
[2019-04-22] MEDS: ARIPiprazole 15 MG TABLET PO SCH (21:01)
[2019-04-22] MEDS: TAMSULOSIN 0.4 MG CAP.ER.24H. PO SCH (21:01)
[2019-04-22] MEDS: ZOLPIDEM 5 MG TABLET. PO SCH (21:02)
[2019-04-23] MEDS: PANTOPRAZOLE 40 MG TABLET. PO SCH (06:05)
[2019-04-23] MEDS: INSULIN LISPRO 300 UNITS/3 ML VIAL. SQ SCH ×3 (07:30→16:30)
[2019-04-23] MEDS: CARVEDILOL 3.125 MG TABLET PO SCH ×2 (08:00→17:10)
[2019-04-23] MEDS: LACTOBACILLUS RHAMNOSUS GG 1 CAPSULE. PO SCH ×2 (08:22→20:15)
[2019-04-23] MEDS: HYDROcodone/APAP 10/325 1 TAB TABLET PO PRN (08:22)
[2019-04-23] MEDS: PREGABALIN 75 MG CAPSULE PO SCH ×2 (08:22→20:13)
[2019-04-23] MEDS: DULoxetine HCL 60 MG CAPSULE.DR PO SCH (08:22)
[2019-04-23] MEDS: ASPIRIN ENTERIC COATED 81 MG TABLET.DR. PO SCH (08:22)
[2019-04-23] MEDS: TOPIRAMATE 100 MG TABLET. PO SCH (08:23)
[2019-04-23] MEDS: LISINOPRIL 20 MG TABLET PO SCH (08:23)
[2019-04-23] MEDS: APIXABAN 5 MG TABLET. PO SCH ×2 (08:23→20:15)
[2019-04-23] MEDS: rOPINIRole 2 MG TABLET. PO SCH ×2 (08:24→20:14)
[2019-04-23] MEDS: AMITRIPTYLINE HCL 25 MG TABLET PO SCH ×2 (08:24→20:15)
[2019-04-23] MEDS: INSULIN GLARGINE SYRINGE. SQ SCH ×2 (08:34→20:28)
[2019-04-23 17:16] VITALS: BP 131/81
[2019-04-23] MEDS: chlorproMAZINE HCL 25 MG TABLET PO SCH (20:14)
[2019-04-23] MEDS: MONTELUKAST 10 MG TABLET. PO SCH (20:14)
[2019-04-23] MEDS: TAMSULOSIN 0.4 MG CAP.ER.24H. PO SCH (20:14)
[2019-04-23] MEDS: ZOLPIDEM 5 MG TABLET. PO SCH (20:15)
[2019-04-23] MEDS: ARIPiprazole 15 MG TABLET PO SCH (20:15)
[2019-04-23] MEDS: ATORVASTATIN CALCIUM 20 MG TABLET PO SCH (20:15)
[2019-04-24 06:03] VITALS: BP 148/89
[2019-04-24] MEDS: TOPIRAMATE 100 MG TABLET. PO SCH (08:35)
[2019-04-24] MEDS: LACTOBACILLUS RHAMNOSUS GG 1 CAPSULE. PO SCH ×2 (08:35→20:47)
[2019-04-24] MEDS: DULoxetine HCL 60 MG CAPSULE.DR PO SCH (08:35)
[2019-04-24] MEDS: ASPIRIN ENTERIC COATED 81 MG TABLET.DR. PO SCH (08:35)
[2019-04-24] MEDS: CARVEDILOL 3.125 MG TABLET PO SCH ×2 (08:35→16:57)
[2019-04-24] MEDS: APIXABAN 5 MG TABLET. PO SCH ×2 (08:35→20:47)
[2019-04-24] MEDS: PREGABALIN 75 MG CAPSULE PO SCH ×2 (08:35→20:45)
[2019-04-24] MEDS: AMITRIPTYLINE HCL 25 MG TABLET PO SCH ×2 (08:35→20:46)
[2019-04-24] MEDS: PANTOPRAZOLE 40 MG TABLET. PO SCH (08:36)
[2019-04-24] MEDS: LISINOPRIL 20 MG TABLET PO SCH (08:36)
[2019-04-24] MEDS: rOPINIRole 2 MG TABLET. PO SCH ×2 (08:37→20:46)
[2019-04-24] MEDS: INSULIN GLARGINE SYRINGE. SQ SCH ×2 (08:45→20:52)
[2019-04-24] MEDS: INSULIN LISPRO 300 UNITS/3 ML VIAL. SQ SCH ×3 (08:45→17:04)
[2019-04-24 16:55] VITALS: BP 149/107
[2019-04-24] MEDS: HYDROcodone/APAP 10/325 1 TAB TABLET PO PRN (17:11)
[2019-04-24] MEDS: chlorproMAZINE HCL 25 MG TABLET PO SCH (20:45)
[2019-04-24] MEDS: ATORVASTATIN CALCIUM 20 MG TABLET PO SCH (20:46)
[2019-04-24] MEDS: ZOLPIDEM 5 MG TABLET. PO SCH (20:46)
[2019-04-24] MEDS: MONTELUKAST 10 MG TABLET. PO SCH (20:46)
[2019-04-24] MEDS: ARIPiprazole 15 MG TABLET PO SCH (20:47)
[2019-04-24] MEDS: TAMSULOSIN 0.4 MG CAP.ER.24H. PO SCH (20:47)
[2019-04-25 05:09] VITALS: BP 147/88
[2019-04-25 07:00] VITALS: BP 162/96
[2019-04-25] MEDS: INSULIN LISPRO 300 UNITS/3 ML VIAL. SQ SCH ×3 (07:30→16:59)
[2019-04-25] MEDS: TOPIRAMATE 100 MG TABLET. PO SCH (08:22)
[2019-04-25] MEDS: PREGABALIN 75 MG CAPSULE PO SCH ×2 (08:22→21:26)
[2019-04-25] MEDS: CARVEDILOL 3.125 MG TABLET PO SCH ×2 (08:23→17:04)
[2019-04-25] MEDS: LACTOBACILLUS RHAMNOSUS GG 1 CAPSULE. PO SCH ×2 (08:24→21:27)
[2019-04-25] MEDS: LISINOPRIL 20 MG TABLET PO SCH (08:26)
[2019-04-25] MEDS: ASPIRIN ENTERIC COATED 81 MG TABLET.DR. PO SCH (08:28)
[2019-04-25] MEDS: DULoxetine HCL 60 MG CAPSULE.DR PO SCH (08:28)
[2019-04-25] MEDS: PANTOPRAZOLE 40 MG TABLET. PO SCH (08:28)
[2019-04-25] MEDS: AMITRIPTYLINE HCL 25 MG TABLET PO SCH ×2 (08:30→21:27)
[2019-04-25] MEDS: rOPINIRole 2 MG TABLET. PO SCH ×2 (08:31→21:26)
[2019-04-25] MEDS: INSULIN GLARGINE SYRINGE. SQ SCH ×2 (09:00→21:00)
[2019-04-25] MEDS: APIXABAN 5 MG TABLET. PO SCH ×2 (09:20→21:27)
[2019-04-25 11:00] VITALS: BP 150/88
[2019-04-25 18:37] VITALS: BP 153/90
[2019-04-25] MEDS: chlorproMAZINE HCL 25 MG TABLET PO SCH (21:26)
[2019-04-25] MEDS: ARIPiprazole 15 MG TABLET PO SCH (21:27)
[2019-04-25] MEDS: ZOLPIDEM 5 MG TABLET. PO SCH (21:27)
[2019-04-25] MEDS: ATORVASTATIN CALCIUM 20 MG TABLET PO SCH (21:27)
[2019-04-25] MEDS: TAMSULOSIN 0.4 MG CAP.ER.24H. PO SCH (21:27)
[2019-04-25] MEDS: MONTELUKAST 10 MG TABLET. PO SCH (21:27)
[2019-04-26] MEDS: HYDROcodone/APAP 10/325 1 TAB TABLET PO PRN (05:44)
[2019-04-26 06:19] VITALS: BP 156/96
[2019-04-26] MEDS: DULoxetine HCL 60 MG CAPSULE.DR PO SCH (08:00)
[2019-04-26] MEDS: TOPIRAMATE 100 MG TABLET. PO SCH (08:00)
[2019-04-26] MEDS: ASPIRIN ENTERIC COATED 81 MG TABLET.DR. PO SCH (08:00)
[2019-04-26] MEDS: APIXABAN 5 MG TABLET. PO SCH (08:01)
[2019-04-26] MEDS: LISINOPRIL 20 MG TABLET PO SCH (08:01)
[2019-04-26] MEDS: LACTOBACILLUS RHAMNOSUS GG 1 CAPSULE. PO SCH (08:01)
[2019-04-26] MEDS: PANTOPRAZOLE 40 MG TABLET. PO SCH (08:01)
[2019-04-26] MEDS: CARVEDILOL 3.125 MG TABLET PO SCH (08:01)
[2019-04-26] MEDS: AMITRIPTYLINE HCL 25 MG TABLET PO SCH (08:02)
[2019-04-26] MEDS: rOPINIRole 2 MG TABLET. PO SCH (08:02)
[2019-04-26] MEDS: INSULIN LISPRO 300 UNITS/3 ML VIAL. SQ SCH ×2 (08:09→12:10)
[2019-04-26] MEDS: PREGABALIN 75 MG CAPSULE PO SCH (09:17)
[2019-04-26] MEDS: INSULIN GLARGINE SYRINGE. SQ SCH (09:19)
[2019-04-26] MEDS ORDERED: TAMS0.4C97 PO (13:49)
--- NOTE | 2019-04-26 13:52 | DISCH ---
HOME HEALTH DISCHARGE/MEDS DISCHARGE INFORMATION: Discharge Date: Apr 26, 2019 Final Diagnosis: cerebrovascular accident recurrent falls Condition on Discharge: Stable CODE STATUS: Code Status: Full HOME HEALTH: Face to Face: I certify this patient is under my care and that I, or a nurse practitioner or physician's clerical assistant working with me, had a face to face encounter that meets the physician face to face encounter requirements with this patient on 04/26/19 Medical Condition(s): CVA Physical Therapy For: Evalulation/Treatment Occupational Therapy For: Evaluation/Treatment Homebound Status Met By: Extreme weakness w/ amb. POST DISCHARGE ORDERS: Activity Instructions for Disc: Resume previous activity DIET AFTER DISCHARGE: Cardiac CERTIFICATION STATEMENT: Certification Statement: Based on the above finding, I certify that this patient is confined to the home and needs intermittent shelter care, physical therapy and/or speech therapy, or continues to need occupational therapy.~ This patient is under my care, and I have initiated the establishment of the plan of care.~ This patient will be followed by myself or a community physician who will periodically review the plan of care. DISCHARGE MEDICATIONS: Home Meds Active Scripts Tamsulosin Hcl (FLOMAX) 0.4 Mg Cap.er.24h, 1 CAP PO DAILY for bph for 30 Days, #30 CAP 11 Refills Prov:THEA PRIEST MD 04/26/19 Reported Medications Zolpidem Tartrate (AMBIEN) 10 Mg Tablet, 10 MG PO QHS for insomnia, TAB 0 Refills 04/18/19 Topiramate (TOPAMAX) 200 Mg Tablet, 1 TAB PO DAILY for seizures, #30 TAB 2 Refills 04/15/19 Sumatriptan Succinate (IMITREX) 100 Mg Tablet, 1 TAB PO UD PRN for MIGRAINE HEADACHE, #9 TAB 1 Refill 04/15/19 Rosuvastatin Calcium (CRESTOR) 20 Mg Tablet, 1 TAB PO HS for high cholesterol, #30 TAB 5 Refills 04/15/19 Ropinirole Hcl (ROPINIROLE HCL) 4 Mg Tablet, 4 MG PO BID for parkinsons, TAB 04/15/19 Pregabalin (LYRICA) 300 Mg Capsule, 1 CAP PO BID for pain, #60 CAP 2 Refills 04/15/19 Omeprazole (OMEPRAZOLE) 40 Mg Capsule.dr, 1 CAP PO BID for gerd, #30 CAP 3 Refills 04/15/19 Montelukast Sodium (SINGULAIR TABLET ) 10 Mg Tablet, 10 MG PO DAILY for FOR A STHMA, TAB 0 Refills 04/15/19 Lisinopril (LISINOPRIL) 40 Mg Tablet, 1 TAB PO DAILY for htn, #30 TAB 5 Refills 04/15/19 Insulin Regular, Human (HUMULIN R) 100 Unit/1 Ml Vial, 5 UNIT IJ TIDAC for diabetes, EACH 04/15/19 Nph, Human Insulin Isophane (HUMULIN N) 100 Unit/1 Ml Vial, 7 UNIT SQ BID for diabetes, EACH 04/15/19 Hydrocodone Bit/Acetaminophen (HYDROCODONE-APAP 10-325 ) 1 Each Tablet, 1 TAB PO PRN Q6HRS PRN for PAIN, TAB 0 Refills 04/15/19 Fluticasone Propionate (FLOVENT 50MCG DISKUS) 50 Mcg Disk.w.dev, 50 MCG IH PRN BID PRN for CONGESTION, INHALER 04/15/19 Duloxetine Hcl (CYMBALTA) 60 Mg Capsule.dr, 2 CAP PO DAILY for depression, #90 CAP 3 Refills 04/15/19 Chlorpromazine Hcl (CHLORPROMAZINE HCL) 100 Mg Tablet, 100 MG PO HS for anti psychotic, TAB 04/15/19 Carvedilol (CARVEDILOL ) 3.125 Mg Tablet, 3.125 MG PO BIDWMEALS for CARDIAC, TAB 04/15/19 Aspirin (ASPIR-LOW) 81 Mg Tablet.dr, 1 TAB PO DAILY for heart health, #30 TAB 3 Refills 04/15/19 Aripiprazole (ABILIFY) 15 Mg Tablet, 1 TAB PO HS for depression, #30 TAB 04/15/19 Apixaban (ELIQUIS) 5 Mg Tablet, 5 MG PO BID for blood thinner, TAB 04/15/19 Amitriptyline Hcl (AMITRIPTYLINE HCL) 25 Mg Tablet, 25 MG PO BID PRN for htn, TAB 04/15/19 Discontinued Reported Medications Amoxicillin (AMOXICILLIN) 500 Mg Capsule, 1 CAP PO TID for antibiotic, #30 CAP 04/15/19 THEA PRIEST MD Apr 26, 2019 13:52
[2019-04-26 14:03] VITALS: BP 150/96
--- NOTE | 2019-04-26 14:28 | DS ---
DATE OF DISCHARGE: 04/26/2019 DATE OF DISCHARGE: 04/26/2019 HOSPITAL COURSE: The patient is a 58-year-old male patient who was admitted originally with generalized weakness and difficulty walking. He suffered a stroke 2 months ago in February and apparently has been at [facility], who was discharged from there 1 day before this admission here and when he came, he was extremely unsteady on his feet, very weak, unable to bear weight, and therefore, the patient was admitted to hospital for further evaluation. He has a Myers catheter for urinary retention. The patient had a mass which was possibly hematoma to the left lower leg and it has largely resolved. He was admitted to swing bed and has been receiving physical and occupational therapy and did very well. He is now up and about, walking with and without walker fairly unsteady. We have discontinued his Myers catheter and he is able to urinate without any problem. He has no hematuria, and therefore, a decision was made to discharge him home with home health. PHYSICAL EXAMINATION: GENERAL: When I saw him today, he looked well and was clearly in no apparent respiratory distress. No pallor, jaundice, cyanosis, or thyromegaly. No jugular venous distention. No lower limb edema. VITAL SIGNS: His heart rate was 88, blood pressure 156/96, temperature was 97.5, respiratory rate 20, and oxygen saturation was 97%. HEAD, EYES, EARS, NOSE, AND THROAT: Normocephalic and atraumatic. NECK: Supple. HEART: Normal first and second heart sounds. No gallop or murmur. CHEST: Clear to auscultation. No crepitation or rhonchi. ABDOMEN: Distended, soft, and nontender. NEUROLOGIC: He is awake, alert, and responding appropriately. All his cranial nerves are intact. He moves extremities without difficulty. He ambulates with and without a walker. LABORATORY DATA: His most recent lab work showed a white cell count of 4200, hemoglobin 10, hematocrit 31, MCV 85, and platelet count 258,000. His chemistry showed that his serum sodium was 145, potassium 3.5, chloride 109, bicarbonate 28, anion gap of 8, BUN 10, creatinine 0.8, and estimated GFR was 98 mL per minute. Her glucose was 152 and calcium was 8.7. Total bilirubin, AST, ALT, and alkaline phosphatase were normal. His total protein was 5.8 and albumin was 3. DISCHARGE MEDICATIONS: He was discharged home to continue on Flomax 0.4 mg at bedtime, amitriptyline 25 mg p.o. b.i.d., apixaban or Eliquis 5 mg twice a day, Abilify 15 mg at bedtime, aspirin 81 mg once a day, carvedilol 3.125 mg twice a day with meals, chlorpromazine 100 mg at bedtime, and Cymbalta 120 mg daily. He is on Flovent 50 mcg Diskus 1 inhaler twice a day and hydrocodone and acetaminophen 10/325 mg 1 tablet every 6 hours. He is on regular insulin 5 units before meals, lisinopril 40 mg once a day and Singulair 10 mg at bedtime. He is on NPH Humulin 7 units twice a day, omeprazole 40 mg twice a day, pregabalin for Lyrica 300 mg twice a day, Requip 4 mg twice a day, sumatriptan succinate or Imitrex 100 mg as needed for migraine headache, topiramate or Topamax 200 mg daily, and Ambien 10 mg at bedtime for insomnia. FINAL DISCHARGE DIAGNOSES: Generalized weakness and difficulty walking has resolved. Other medical problems include cerebrovascular accident, hypertension, paroxysmal atrial fibrillation, obstructive sleep apnea, Lopez esophagus, morbid obesity, and type 2 diabetes. THEA PRIEST MD DR: [email or web address] JOB#: [id number] / [id number]
== END 2019-04-26 15:09 | disposition home health service (06) | DRG 948 ==
LOC: LND 10:24
PROVIDERS: ADMIT Internal Medicine; ATTEND Internal Medicine
DX: R53.1 Weakness (principal); Z68.41 Body mass index [BMI] 40.0-44.9, adult; E11.9 Type 2 diabetes mellitus without complications; E66.01 Morbid (severe) obesity due to excess calories; G47.33 Obstructive sleep apnea (adult) (pediatric); I10 Essential (primary) hypertension; I48.0 Paroxysmal atrial fibrillation; Z86.73 Personal history of transient ischemic attack (TIA), and cerebral infarction without residual deficits
CPT/HCPCS: 36415; 80053; 82947; 85025; J1815; Q0161; 97110; 97112; 97116; 97530; 97535